=== PATIENT | female | born 1975 | race Caucasian/White ===

== ENCOUNTER → 2017-09-18 | Outpatient (CLI) | payer OTHER ==
--- NOTE | 2017-09-18 19:54 | CT ---
EXAMINATION TYPE: CT abdomen pelvis w con DATE OF EXAM: 09/18/2017 COMPARISON: NONE HISTORY: Lower pelvic pain worsening x1 month CT DLP: 1104 mGycm Automated exposure control for dose reduction was used. TECHNIQUE: Helical acquisition of images was performed from the lung bases through the pelvis. CONTRAST: Performed with Oral Contrast and with IV Contrast, patient injected with 100 mL of Isovue 300. FINDINGS: Lung bases are clear. There is no pleural effusion. Heart size is normal. Liver spleen pancreas gallbladder appear normal. Bile ducts are not dilated. There is no adrenal mass. Kidneys show satisfactory contrast opacification. There is no hydronephrosi s. There is no retroperitoneal adenopathy. There is no ascites. Bladder distends smoothly. Uterus is anteverted. There is no free fluid in the pelvis. There is no evidence of a pelvic mass. There is a 1 .5 cm cyst on the left ovary. Appendix is partly filled with air and appears normal. There is no intestinal wall thickening. There are no dilated loops. The bony structures appear intact. IMPRESSION: NEGATIVE CT SCAN OF THE ABDOMEN AND PELVIS. NORMAL APPENDIX.
== END ==
LOC: RADCTMAIN 17:35
PROVIDERS: ATTEND Surgery
DX: R10.9 Unspecified abdominal pain (principal)
CPT/HCPCS: 74177; Q9967

== ENCOUNTER → 2017-10-06 | Outpatient (CLI) | payer OTHER ==
--- NOTE | 2017-10-06 11:28 | US ---
EXAMINATION TYPE: US abdomen complete DATE OF EXAM: 10/06/2017 COMPARISON: CT abdomen and pelvis September 18, 2017 CLINICAL HISTORY: Generalized abdominal pain R10.84; patient stated has intermittent pelvic pain EXAM MEASUREMENTS: Liver Length: 14.1 cm Gallbladder Wall: 0.1 cm CBD: 0.3 cm Spleen: 9.5 cm Right Kidney: 10.9 x 4.1 x 3.8 cm Left Kidney: 11.7 x 5.2 x 5.2 cm Pancreas: wnl Liver: wnl Gallbladder: wnl Evidence for sonographic Ascencio's sign: no CBD: wnl Spleen: wnl Right Kidney: wnl Left Kidney: wnl, prominent renal pelvis is noted from full bladder prep for pelvic US Upper IVC: wnl Abd Aorta: wnl The visualized liver is homogenous. The intrahepatic portion of the IVC and visualized abdominal aor ta are within normal limits. There is no evidence of cholelithiasis. Common bile duct is unremarkab le. The visualized portions of the pancreas are homogenous. The spleen is unremarkable. Kidneys ar e symmetric and free of hydronephrosis. No renal lesions are seen. Extrarenal pelvis on the left red emonstrated. IMPRESSION: No significant finding is seen to account for patient's symptoms.
--- NOTE | 2017-10-06 11:31 | US ---
EXAMINATION TYPE: US pelvis complete transvag DATE OF EXAM: 10/06/2017 COMPARISON: CT abdomen and pelvis September 18, 2017 CLINICAL HISTORY: Generalized abdominal pain R10.84; patient stated has intermittent pelvic pain; LMP approximately 2 weeks ago; TECHNIQUE: . Transabdominal sonographic images of the pelvis were acquired. Transvaginal sonographi c images were medically necessary to better assess the following anatomy: endometrium and left ovary Date of LMP: approximately 09/22/2017 EXAM MEASUREMENTS: Uterus: 9.6 x 5.2 x 5.0 cm Endometrial Stripe: 1.6 cm Right Ovary: 3.4 x 2.9 x 2.4 cm Left Ovary: 2.6 x 1.2 x 1.6 cm 1. Uterus: Anteverted; small Nabothian Cysts in cervix with larger cyst = 0.5 x 0.4 x 0.3cm. 2. Endometrium: multicystic and complex appearance to endometrium both transabdominally and transvag inally and thicker for approximately Day 15 LMP. 3. Right Ovary: couple of follicles seen with larger cyst = 1.7 x 1.9 x 2.0cm 4. Left Ovary: small follicles are noted Spectral, color and waveform doppler imaging shows good arterial and venous flow within the ovaries ;. 5. Bilateral Adnexa: wnl 6. Posterior cul-de-sac: free fluid noted = 4.8 x 2.9 x 1.6 x 0.523 = 11.6ml (abnormal volume as is > 10ml). Heterogeneous anteverted uterus is redemonstrated. Tiny nabothian cysts are seen in the cervix. Small to moderate amount of free fluid in pelvic cul-de-sac is present on current study new from CT. Endom etrium is heterogeneous and somewhat thickened for early secretory phase of menstrual cycle. Both ovaries are identified. Slightly more prominent follicles or simple ovarian cysts and right ovar y are noted. IMPRESSION: Heterogeneous slightly thickened endometrium. New small to moderate amount of free fluid in pelvic cul-de-sac, nonspecific finding.
== END | disposition home or self-care (01) ==
LOC: RADUSWWP 09:37
PROVIDERS: ATTEND Internal Medicine
DX: R93.8 Abnormal findings on diagnostic imaging of other specified body structures (principal); R10.84 Generalized abdominal pain
CPT/HCPCS: 76700; 76830; 76856

== ENCOUNTER → 2023-04-07 | Outpatient (CLI) | payer BC, OTHER ==
[2023-04-07 09:48] VITALS: BP 151/98; PULSE 76; RESP 17; TEMP 98.3
--- NOTE | 2023-04-07 10:40 | P.HPOB ---
History of Present Illness H&P Date: 04/07/23 Chief Complaint: The patient is here for her routine gynecologic exam and ma mmogram. This is a 47-year-old with an LMP of approximately 01/19/2023. The patient is here to establish with this office. It is been about 2 years since her last pelvic exam. She is infrequently sexually active and uses withdrawal when she is sexually active. Menstrual periods have become less frequent over the past year. Prior to that she was regular every month. Now menstrual perio ds are about every 2-3 months. She denies any significant hot flashes. She does have occasional cramps that feel like she may be starting a menstrual period, but does not always start. She is otherwise without gynecologic complaints. Review of Systems The patient's weight has been stable over the last year. She denies respiratory, cardiac, or G.I. problems. 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 Previous LEEP or cautery of the cervix in her 20s History of Any Multi-Drug Resistant Organisms: None Reported Past Surgical History: Hernia Repair Additional Past Surgical History / Comment(s): Cervical LEEP procedure or cauterization in her 20s. Inguinal hernia repair. Past Anesthesia/Blood Transfusion Reactions: No Reported Reaction Past Psychological History: No Psychological Hx Reported Smoking Status: Former smoker Past Alcohol Use History: Rare (5 drinks per year.) Additional Past Alcohol Use History / Comment(s): Quit smoking in her 20s. Past Drug Use History: None Reported Additional History: She has been since 2003. 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 - Past Family History Mother Family Medical History: Hyperlipidemia, Hypertension Additional Family Medical History / Comment(s): Depression. Father Family Medical History: No Reported History Additional Family Medical History / Comment(s): Paternal cousin had breast cancer. Medications and Allergies Home Medications Medication Instructions Recorded Confirmed Type Rosuvastatin [Crestor] 10 mg PO DAILY 04/07/23 04/07/23 History Allergies Allergy/AdvReac Type Severity Reaction Status Date / Time Sulfa (Sulfonamide Allergy Rash/Hives Unverified 04/07/23 09:31 Antibiotics) Exam Vital Signs Temp Pulse Resp BP Pulse Ox 01/09/24 09:32 98.3 F 76 17 151/98 99 Intake and Output 04/06/23 04/07/23 04/07/23 22:59 06:59 14:59 Other: Weight 63.503 kg Height 5 feet 5 inches, weight 140 pounds, BMI 23.3. This is a well-developed well-nourished white female who is alert and oriented times 3 in no acute distress. HEENT: Within normal limits. NECK: Supple without mass or thyromegaly. CHEST AND LUNGS: Clear to auscultation. HEART: Regular rate and rhythm. BREASTS: Are without mass or discharge. AXILLARY EXAM: Negative for adenopathy. BACK: Negative for CVA tenderness. ABDOMEN: Soft, nontender, without palpable masses. PELVIC EXAM: Normal external genitalia. Cervix and vagina appear normal. There is no unusual discharge. There is no evidence of prolapse. The uterus is midposition, nongravid size and nontender. There are no palpable adnexal masses or tenderness. RECTAL EXAM: negative for mass or tenderness and is negative for occult blood. EXTREMITIES: Nontender. IMPRESSION: 1. 47-year-old perimenopausal female with one year history of oligomenorrhea with no significant hot flashes. 2. Normal gynecologic exam. 3. Elevated blood pressure with history of chronic hypertension. The patient states she was recently discontinued from her blood pressure medicine because of possible side effects. PLAN: 1. Pap smear cotest was performed. 2. Self breast awareness was discussed with the patient. We have also discussed symptoms associated with inflammatory breast cancer. 3. Screening mammogram was done today. 4. The patient will keep a menstrual calendar and call if menstrual problems. 5. We have discussed the possible need for control. She is declining any other method of control at this time. 6. She will check her own blood pressure at home on a regular basis and she will follow-up with her PCP for the possible need to restart some type of blood pressure medication. 7. We have discussed colorectal cancer screening. She will discuss the options with her PCP. 8.Osteoporosis prevention was discussed. I have stressed the importance of adequate calcium, vitamin D and regular exercise. Recommended amounts of calcium and vitamin D were also discussed. 9. She was advised to return in one year for her annual well woman exam.
--- NOTE | 2023-04-08 17:09 | MM ---
Reason for Exam: Screening (asymptomatic). Last mammogram was performed 7 year(s) and 10 month(s) ago. Patient History: Menarche at age 12. First Full-Term at age 21. Perimenopausal. Paternal cousin had breast cancer, age 40. Risk Values: Susana 5 year model risk: 0.8%. NCI Lifetime model risk: 8.3%. Prior Study Comparison: 06/13/2015 Bilateral Screening Mammogram, [facility]. Tissue Density: The breast tissue is extremely dense which could obscure a lesion on mammography. Findings: Analyzed By CAD. Pattern appears symmetrical and stable. No significant interval changes evident No suspicious groups of microcalcifications, spiculated or lobular masses, architectural distortion or other secondary signs of malignancy are mammographically apparent. Overall Assessment: Benign, BI-RAD 2 Management: Screening Mammogram of both breasts in 1 year. A negative mammogram report should not preclude additional follow up of suspicious palpable abnormalities. Patient should continue monthly self breast exam. A clinical breast exam by your physician is recommended on an annual basis and results should be correlated with mammographic findings. Electronically signed and approved by: Jai Mejia D.O. Radiologis
== END ==
LOC: WWCWWP 09:02
PROVIDERS: ATTEND Obstetrics & Gynecology
DX: Z12.31 Encounter for screening mammogram for malignant neoplasm of breast (principal); N91.5 Oligomenorrhea, unspecified; E78.5 Hyperlipidemia, unspecified; I10 Essential (primary) hypertension; Z88.2 Allergy status to sulfonamides
CPT/HCPCS: 77063; 77067

== ENCOUNTER → 2024-06-16 | Outpatient (CLI) | payer BC, OTHER ==
--- NOTE | 2024-06-16 15:15 | US ---
EXAMINATION TYPE: US pelvic complete DATE OF EXAM: 06/16/2024 COMPARISON: NONE CLINICAL INDICATION: Female, 48 years old with history of R10.2 PELVIC AND PERINEAL PAIN; pain TECHNIQUE: Transabdominal (TA). Doppler imaging: Not performed. FINDINGS: EXAM MEASUREMENTS: Uterus: 8 x 3.7 x 4.4 cm Endometrial Stripe: 0.6 cm Right Ovary: 1.8 x 1.5 x 1.7 cm Left Ovary: 2.5 x 1.8 x 1.9 cm 1. Uterus: Anteverted wnl 2. Endometrium: wnl 3. Right Ovary: wnl 4. Left Ovary: wnl 5. Bilateral Adnexa: wnl 6. Posterior cul-de-sac: wnl IMPRESSION: 1. No evidence for acute process. 2. Endometrium within normal limits for thickness. [facility], , 06/16/2024 3:12 PM
== END | disposition home or self-care (01) ==
LOC: RADUSWWP 14:27
PROVIDERS: ATTEND Internal Medicine
DX: R10.2 Pelvic and perineal pain (principal)
CPT/HCPCS: 76856